=== PATIENT | female | born 1955 ===

== ENCOUNTER 2020-02-01 08:00 | Outpatient (CLI) | payer OTHER ==
[~2020-02-01 08:00] MED LIST: ASPIR 8181 MG PO; EFFEXOR PO; LAMICTAL100 M1 PO; LYRICA200 MG PO; PEPCID PO; SINGULAR PO; SYNTHROID PO; ULTRAM50 MG PO; XANAX2 MG PO
== END 2020-02-01 08:01 | disposition home or self-care (01) ==
LOC: LAB 08:00 → CIR.AMB 02-05 07:30 → EDSTATUS 02-05 07:30
PROVIDERS: ATTEND Colon & Rectal Surgery
DX: Z01.812 Encounter for preprocedural laboratory examination (principal); Z20.828 Contact with and (suspected) exposure to other viral communicable diseases